=== PATIENT | female | born 1965 | race Caucasian/White ===

== ENCOUNTER 2017-01-08 18:05 | Inpatient (IN) ==
--- NOTE | 2017-01-08 18:56 | Emergency Department Note ---
Arrival - Arrival Chief Complaint: Extremity Problem Stated Complaint: right foot bleeding diabetic ED Nursing Triage Note: Pt c/o bleeding on her right foot x 2 wks after a red spot/blister started bleeding. Mode of Arrival: Wheelchair Time Seen by Provider: 01/08/17 18:42 - History of Present Illness HPI Narrative: This is a 51 year old insulin dependent diabetic female brought in by for complaints of blister to right heel for 2 weeks. Patient is currently undergoing electric shock therapy for bipolar disorder, and is poor historian. noted wound about 2 weeks ago, has been changing it with bandaids. Patient denies any pain - she describes foot as feeling numb. She has a history of neuropathy. They deny any fevers, chills, chest pain, shortness of breath. denies any purulent drainage from foot. He brought her in today because wound would not stop bleeding. Onset (ago): week(s) (2) Consistency: constant Allergies/Adverse Reactions: Allergies Allergy/AdvReac Type Severity Reaction Status Date / Time codeine Allergy Swelling Verified 01/08/17 18:09 of Lip/Tongue/Throat morphine Allergy RASH Verified 07/11/15 21:41 Penicillins Allergy RASH Verified 07/11/15 21:41 Sulfa (Sulfonamide Allergy RASH Verified 07/11/15 21:41 Antibiotics) IVP DYE Allergy RASH Uncoded 07/11/15 21:41 Home Medications: Home Medications Medication Instructions Recorded Confirmed Type Insulin Glargine [Lantus] 45 unit SUBCUT BEDTIME 03/31/15 01/08/17 History metFORMIN [Glucophage] 1,000 mg PO BID 03/31/15 01/08/17 History Pantoprazole Sodium [Protonix] 1 tablet PO DAILY 06/29/15 01/08/17 History Atorvastatin [Lipitor] 20 mg PO DAILY 05/25/16 01/08/17 History Gabapentin Cap/Tab [Neurontin 800 mg PO QID 05/25/16 01/08/17 History Cap/Tab] Nitroglycerin Sl Tab [Nitrostat] 0.4 mg SL Q5M PRN 05/25/16 01/08/17 History Propranolol HCl [Propranolol ER 60 mg PO DAILY 05/25/16 01/08/17 History Cap] Quetiapine Fumarate [Seroquel Xr] 800 mg PO 1800 05/25/16 01/08/17 History Trazodone HCl 100 mg PO BEDTIME 05/25/16 01/08/17 History Venlafaxine HCl [Effexor XR] 300 mg PO DAILY 05/25/16 01/08/17 History clonazePAM [Clonazepam] 0.5 mg PO QID PRN 05/25/16 01/08/17 History Valsartan/Hydrochlorothiazide 1 each PO DAILY 08/29/16 01/08/17 History [Valsartan-Hctz 320-25 mg Tab] Calcium Carbonate/Vitamin D3 1 each PO DAILY 01/08/17 01/08/17 History [Calcium 600-Vit D3 800 Tablet] Multivitamin/Iron/Folic Acid 1 each PO DAILY 01/08/17 01/08/17 History [Centrum Women Tablet] amLODIPine [Norvasc] 10 mg PO DAILY 01/08/17 01/08/17 History Review of System - Review of System Constitutional: Absent: chills, fever, night sweats Eyes: Absent: vision change Head/Ears/Nose/Throat: Absent: nasal drainage Respiratory: Absent: cough, respiratory distress Cardiovascular: Absent: chest pain, palpitations, dyspnea on exertion Gastrointestinal: Absent: abdominal pain, nausea, vomiting, diarrhea, constipation Genitourinary female: Absent: dysuria Musculoskeletal: Present: other (foot bleeding) Skin: Present: lesions. Absent: rash Neurological: Present: numbness. Absent: headache, weakness Medical,Surgical,& Family Hx - Medical History Cardio: History of: Hypertension Psychological: History of: Anxiety Disorders, Bipolar Disorder, Depression Endocrine: History of: Diabetes Mellitus (IDDM) Gastrointestinal: History of: GERD - Family History Family History: Reports;: Family Cancer, Family Psychiatric Problems, Family Stroke Denies;: Family Diabetes - Social History Smoking Status: Never smoker Exam Vital Signs: Vital Signs Temperature 98.6 F 01/08/17 18:35 Pulse Rate 84 01/08/17 20:10 Respiratory Rate 18 01/08/17 20:10 Blood Pressure 160/135 01/08/17 20:10 O2 Sat by Pulse Oximetry 95 01/08/17 18:09 - General General appearance: alert, in no apparent distress - Head Head exam: Present: atraumatic, normocephalic, normal inspection - Eye Eye exam: Present: normal appearance, PERRL, EOMI - ENT ENT exam: Present: normal exam, normal oropharynx, mucous membranes moist - Neck Neck exam: Present: normal inspection, full ROM. Absent: lymphadenopathy - Chest Chest inspection: Present: normal inspection, symmetric chest wall rise. Absent : tenderness - Respiratory Respiratory exam: Present: normal lung sounds bilaterally. Absent: rales, rhonchi, wheezes - Cardiovascular Cardiovascular exam: Present: regular rate, normal rhythm, normal heart sounds. Absent: murmur, rubs, gallop - Abdominal Exam Abdominal exam: Present: soft, normal bowel sounds. Absent: distention, tenderness - Extremities Exam Extremities exam: Present: other (R heel with 1 cm circular ulcer, oozing blood. No purulence or erythema. ) - Back Exam Back exam: Present: normal inspection. Absent: tenderness - Neurological Exam Neurological exam: Present: alert, oriented X3, CN II-XII intact - Psychiatric Psychiatric exam: Present: normal affect, normal mood - Skin Skin exam: Present: warm, dry, intact Course - Consultations Consultation #1: Discussed with hospitalist Dr. Duncan for admission for wound debridement for diabetic ulcer. Results - Labs CBC & BMP: 01/08/17 19:03 01/08/17 19:03 - Diagnostic Findings Procedure: X-ray: report reviewed by me (R foot XR: No acute intraosseous process. No osteomyelitis.) Disposition Clinical Impression: Diabetic ulcer of heel Case discussed with: patient, patient's family Disposition: Still a Patient Condition: Stable Time of Disposition: 21:39
--- NOTE | 2017-01-08 19:23 | XRay Report ---
Referring Physician: Jeanna Chaudhary MD Exam: XR foot 2V RT Date: January 08, 2017 at 6:45 PM Reason: Diabetic foot ulcer, concern for osteomyelitis Comparison: None Findings: There is minimal calcaneal spurring and an os navicularis. No acute fracture, dislocation or osseous destructive process is identified. Impression: No acute osseous process is identified. Specifically, there is no radiographic evidence of osteomyelitis. PROCEDURE INTERPRETED AT [facility] DEPARTMENT OF RADIOLOGY Final Report Signed by: Dr. Veto Eduardo
[2017-01-08 19:36] LABS: Basophils % 0.4 % (0.0-0.8); Eosinophils # 0.2 10*3/uL (0.0-0.87); Eosinophils % 2.2 % (0.00-10.9); Hematocrit 37.6 VOL% (35.7-47.0); Hemoglobin 12.2 GM/DL (12.0-16.0); Immature Granulocytes % 0.8 %; Immature Granulocytes Absolute 0.06 #; Lymphocytes % 27.6 % (21.3-54.2); Mean Corpuscular HGB Conc 32.4 GM/DL (32-36); Mean Corpuscular Hemoglobin 28 PG (27-34); Mean Corpuscular Volume 85.3 FL (87-102); Mean Platelet Volume 11.1 FL (9.6-12.0); Monocytes # 0.6 10*3/uL (0.11-0.8); Monocytes % 8.7 % (1.7-12.7); Neutrophils # 4.4 10*3/uL (1.4-7.4); Neutrophils % 60.3 % (38.7-73.9); Platelet Count 288 T/CUMM (130-400); Red Blood Count 4.41 MC/CUMM (3.8-5.5); Red Cell Distribution Width 16.4 % (9.3-17.3); White Blood Count 7.3 T/CUMM (4-12)
[2017-01-08 19:53] LABS: Calcium 8.7 MG/DL (8.5-10.1); Osmolality,Calculated 276.5 MOS/KG (273-304); Potassium 3.7 MMOL/L (3.5-5.1)
[2017-01-08 20:41] LABS: Sedimentation Rate-Westergren 44 MM/HR (0-30)
[2017-01-08] MEDS ORDERED: DEXTROSE 50% 25 GM/50 ML VIAL IV PRN ×2 (20:56)
[2017-01-08] MEDS ORDERED: ONDANSETRON 4 MG/2 ML VIAL IV PRN (20:56)
[2017-01-08] MEDS ORDERED: GLUCAGON 1 MG VIAL IM PRN ×2 (20:56)
--- NOTE | 2017-01-08 21:21 | Hospitalist History & Physical ---
Assessment and Plan (1) Diabetes Status: Chronic Assessment and plan: Moderate sliding scale regular insulin. Hemoglobin A1c. Current Visit: Yes Qualifiers: Diabetes mellitus type: type 1 Diabetes mellitus complication status: with skin complications Diabetes mellitus complication detail: with foot ulcer Qualified Code(s): E10.621 - Type 1 diabetes mellitus with foot ulcer; L97.509 - Non-pressure chronic ulcer of other part of unspecified foot with unspecified severity (2) Anxiety Status: Chronic Current Visit: Yes (3) Bipolar disorder Status: Chronic Assessment and plan: Continue with home medications. Of note patient takes Klonopin 0.5mg 4 times daily. Current Visit: Yes (4) Osteomyelitis Status: Acute Assessment and plan: Vancomycin 1 g IV every 12. Gentamicin 100 mg IV every 8 pharmacy consult. Wound care consult. Current Visit: Yes (5) Diabetic ulcer of heel Status: Acute Assessment and plan: Wound care consult Current Visit: Yes History of Present Illness Chief complaint: Diabetic foot ulcer bleeding from right heel History of present illness: Ms. Greene is a 51 year old female with a history of diabetes bipolar disorder has been undergoing treatment for electroshock therapy history of hypertension sleep apnea who for the past 2 weeks has been having bleeding from the heel of the right foot. According to patient has been the area started off as a small sore that progressed over the past several weeks. The oozing has continued and patient did stop her aspirin therapy however today the flow became more intense. There is been no history of fevers or chills. No shortness of breath or chest pain. She has not taken aspirin in over a week. The patient mentions that her sugars have been running in the 300s. X-ray of the foot done today showed evidence of osteomyelitis. She has been admitted for further therapy and care. Patient has extensive history of allergies to different medication she will start on vancomycin and gentamicin. Home Medications Medication Instructions Recorded Confirmed Type Insulin Glargine [Lantus] 45 unit SUBCUT BEDTIME 03/31/15 01/08/17 History metFORMIN [Glucophage] 1,000 mg PO BID 03/31/15 01/08/17 History Pantoprazole Sodium [Protonix] 1 tablet PO DAILY 06/29/15 01/08/17 History Atorvastatin [Lipitor] 20 mg PO DAILY 05/25/16 01/08/17 History Gabapentin Cap/Tab [Neurontin 800 mg PO QID 05/25/16 01/08/17 History Cap/Tab] Nitroglycerin Sl Tab [Nitrostat] 0.4 mg SL Q5M PRN 05/25/16 01/08/17 History Propranolol HCl [Propranolol ER 60 mg PO DAILY 05/25/16 01/08/17 History Cap] Quetiapine Fumarate [Seroquel Xr] 800 mg PO 1800 05/25/16 01/08/17 History Trazodone HCl 100 mg PO BEDTIME 05/25/16 01/08/17 History Venlafaxine HCl [Effexor XR] 300 mg PO DAILY 05/25/16 01/08/17 History clonazePAM [Clonazepam] 0.5 mg PO QID PRN 05/25/16 01/08/17 History Valsartan/Hydrochlorothiazide 1 each PO DAILY 08/29/16 01/08/17 History [Valsartan-Hctz 320-25 mg Tab] Calcium Carbonate/Vitamin D3 1 each PO DAILY 01/08/17 01/08/17 History [Calcium 600-Vit D3 800 Tablet] Multivitamin/Iron/Folic Acid 1 each PO DAILY 01/08/17 01/08/17 History [Centrum Women Tablet] amLODIPine [Norvasc] 10 mg PO DAILY 01/08/17 01/08/17 History Allergies Allergy/AdvReac Type Severity Reaction Status Date / Time codeine Allergy Swelling Verified 01/08/17 18:09 of Lip/Tongue/Throat morphine Allergy RASH Verified 07/11/15 21:41 Penicillins Allergy RASH Verified 07/11/15 21:41 Sulfa (Sulfonamide Allergy RASH Verified 07/11/15 21:41 Antibiotics) IVP DYE Allergy RASH Uncoded 07/11/15 21:41 Medical,Surgical,& Family Hx - Medical History Cardio: History of: Hypertension Psychological: History of: Anxiety Disorders, Bipolar Disorder, Depression Endocrine: History of: Diabetes Mellitus (IDDM) Gastrointestinal: History of: GERD - Family History Family History: Reports;: Family Cancer, Family Psychiatric Problems, Family Stroke Denies;: Family Diabetes - Social History Smoking Status: Never smoker - Constitutional Constitutional: Absent: anorexia, chills, fatigue, malaise - EENT Nose, mouth and throat: Absent: dysphagia, epistaxis - Respiratory Respiratory: Absent: cough - Gastrointestinal Gastrointestinal: Absent: abdominal pain, constipation - Genitourinary Genitourinary: Absent: flank pain - Neurological Neurological: Absent: behavioral changes - Psychiatric Psychiatric: Present: anxiety, panic attacks - Hematologic/Lymphatic Hematologic/Lymphatic: Present: easy bleeding Exam - Constitutional Vitals: Period Temp Pulse Resp BP Sys/Aragon Pulse Ox Last 24 Hr 98.6 F-98.6 F 84-86 18-18 132-160/98-135 95 General appearance: over weight - Head Head exam: Present: normal inspection - Eye Eye exam: Present: EOMI Pupils: Present: JEEVAN - Neck Neck exam: Present: normal inspection - Respiratory Respiratory exam: Present: clear to auscultation bilaterally - Cardiovascular Cardiovascular exam: Present: regular rate and rhythm - GI/Abdominal GI/Abdominal exam: Present: normal bowel sounds - Extremities Exam Extremities exam: Present: full ROM. Absent: edema - Neurological Exam Neurological exam: Present: alert, oriented X3 - Psychiatric Psychiatric exam: Present: anxious - Skin Skin exam: Present: other (Heel on the right is bandaged) Results - Labs CBC & BMP: 01/08/17 19:03 01/08/17 19:03 Quality Measures - VTE Contraindication to Pharmacological VTE Prophylaxis: High Risk of Bleeding
[2017-01-08] MEDS ORDERED: NITROGLYCERIN SL 0.4 MG TABLET SL PRN (21:37)
[2017-01-08] MEDS: SODIUM CHLORIDE 0.45% 1,000 ML IV SCH (22:04)
[2017-01-08] MEDS: clonazePAM 0.5 MG TABLET PO PRN (22:31)
[2017-01-08] MEDS: INSULIN REGULAR 100 UNIT/ML SUBCUT SCH (22:31)
[2017-01-08] MEDS ORDERED: SODIUM CHLORIDE 0.9% IV SCH (23:00)
[2017-01-08] MEDS ORDERED: GENTAMICIN IV SCH (23:00)
[2017-01-09] MEDS: VANCOMYCIN INJ 1,500 MG in SODIUM CHLORIDE 0.9% 500 ML IV SCH ×2 (01:10→08:22)
[2017-01-09 07:50] LABS: Basophils % 0.4 % (0.0-0.8); Eosinophils # 0.2 10*3/uL (0.0-0.87); Eosinophils % 2.9 % (0.00-10.9); Hematocrit 33.4 VOL% (35.7-47.0); Hemoglobin 10.9 GM/DL (12.0-16.0); Immature Granulocytes Absolute 0.07 #; Lymphocytes # 2.6 10*3/uL (1.4-4.0); Lymphocytes % 37.7 % (21.3-54.2); Mean Corpuscular HGB Conc 32.6 GM/DL (32-36); Mean Corpuscular Hemoglobin 28 PG (27-34); Mean Corpuscular Volume 85.4 FL (87-102); Mean Platelet Volume 11.1 FL (9.6-12.0); Monocytes # 0.6 10*3/uL (0.11-0.8); Monocytes % 9.3 % (1.7-12.7); Neutrophils # 3.3 10*3/uL (1.4-7.4); Neutrophils % 48.7 % (38.7-73.9); Platelet Count 249 T/CUMM (130-400); Red Blood Count 3.91 MC/CUMM (3.8-5.5); Red Cell Distribution Width 16.3 % (9.3-17.3); White Blood Count 6.9 T/CUMM (4-12)
[2017-01-09 08:14] LABS: Calcium 8.4 MG/DL (8.5-10.1); Osmolality,Calculated 277.7 MOS/KG (273-304); Potassium 3.5 MMOL/L (3.5-5.1)
[2017-01-09] MEDS: VALSARTAN/HCTZ 160-12.5 MG TABLET PO SCH (08:23)
[2017-01-09] MEDS: INSULIN REGULAR 100 UNIT/ML SUBCUT SCH ×4 (08:23→20:20)
[2017-01-09] MEDS: VENLAFAXINE XR 75 MG CAPSULE PO SCH (08:23)
[2017-01-09] MEDS: PANTOPRAZOLE 40 MG TABLET PO SCH (08:24)
[2017-01-09] MEDS: CALCIUM (CARBONATE)/VITAMIN D 600 MG-400 UNIT TABLET PO SCH (08:24)
[2017-01-09] MEDS: ATORVASTATIN 20 MG TABLET PO SCH (08:24)
[2017-01-09] MEDS: amLODIPine 10 MG TABLET PO SCH (08:24)
[2017-01-09] MEDS: GABAPENTIN 400 MG CAPSULE PO SCH ×4 (08:24→20:19)
[2017-01-09] MEDS: MULTIVITAMIN (CENTRUM) TABLET PO SCH (08:24)
[2017-01-09] MEDS: PROPRANOLOL LA 60 MG CAPSULE PO SCH (08:24)
[2017-01-09] MEDS: clonazePAM 0.5 MG TABLET PO PRN ×2 (08:25→20:20)
--- NOTE | 2017-01-09 11:17 | Infectious Disease Consult ---
Assessment and Plan (1) Diabetic ulcer of heel Status: Acute Assessment and plan: The wound to right lateral heel is very small and there is scab. There is evidence of dried blood on the dressing but no active bleeding when I saw him there was no purulent drainage. X-ray showed no osteomyelitis. This seems like just soft tissue injury which may be now starting to heal. There does not seem to be any associated infection. Recommendations: I really do not see indication for antibiotics at this point in time therefore I will stop the gentamicin and vancomycin. Continue local wound care. Thank you very much for the consult. Current Visit: Yes (2) Bipolar disorder Status: Chronic Current Visit: Yes (3) Diabetes Status: Chronic Assessment and plan: Uncontrolled with A1c of 9.3%. Current Visit: Yes Qualifiers: Diabetes mellitus type: type 1 Diabetes mellitus complication status: with skin complications Diabetes mellitus complication detail: with foot ulcer Qualified Code(s): E10.621 - Type 1 diabetes mellitus with foot ulcer; L97.509 - Non-pressure chronic ulcer of other part of unspecified foot with unspecified severity History of Present Illness Chief complaint: Also to right heel History of present illness: Ms. Greene is a 51 year old female presented to hospital yesterday because of bleeding from wound to right heel. She says wound has been present for 2 weeks. Denies trauma to the area. She has not had a diabetic foot infection in the past. No associated fever or other constitutional symptoms. There was concern for possible osteomyelitis and I am asked to assist with management. Home Medications Medication Instructions Recorded Confirmed Type Insulin Glargine [Lantus] 45 unit SUBCUT BEDTIME 03/31/15 01/08/17 History metFORMIN [Glucophage] 1,000 mg PO BID 03/31/15 01/08/17 History Pantoprazole Sodium [Protonix] 1 tablet PO DAILY 06/29/15 01/08/17 History Atorvastatin [Lipitor] 20 mg PO DAILY 05/25/16 01/08/17 History Gabapentin Cap/Tab [Neurontin 800 mg PO QID 05/25/16 01/08/17 History Cap/Tab] Nitroglycerin Sl Tab [Nitrostat] 0.4 mg SL Q5M PRN 05/25/16 01/08/17 History Propranolol HCl [Propranolol ER 60 mg PO DAILY 05/25/16 01/08/17 History Cap] Quetiapine Fumarate [Seroquel Xr] 800 mg PO 1800 05/25/16 01/08/17 History Trazodone HCl 100 mg PO BEDTIME 05/25/16 01/08/17 History Venlafaxine HCl [Effexor XR] 300 mg PO DAILY 05/25/16 01/08/17 History clonazePAM [Clonazepam] 0.5 mg PO QID PRN 05/25/16 01/08/17 History Valsartan/Hydrochlorothiazide 1 each PO DAILY 08/29/16 01/08/17 History [Valsartan-Hctz 320-25 mg Tab] Calcium Carbonate/Vitamin D3 1 each PO DAILY 01/08/17 01/08/17 History [Calcium 600-Vit D3 800 Tablet] Multivitamin/Iron/Folic Acid 1 each PO DAILY 01/08/17 01/08/17 History [Centrum Women Tablet] amLODIPine [Norvasc] 10 mg PO DAILY 01/08/17 01/08/17 History Allergies Allergy/AdvReac Type Severity Reaction Status Date / Time codeine Allergy Swelling Verified 01/08/17 18:09 of Lip/Tongue/Throat morphine Allergy RASH Verified 07/11/15 21:41 Penicillins Allergy RASH Verified 07/11/15 21:41 Sulfa (Sulfonamide Allergy RASH Verified 07/11/15 21:41 Antibiotics) IVP DYE Allergy RASH Uncoded 07/11/15 21:41 12 point system: reviewed and no additional remarkable complaints except as stated (Per HPI) Medical,Surgical,& Family Hx - Medical History Cardio: History of: Hypertension Psychological: History of: Anxiety Disorders, Bipolar Disorder, Depression Neurology: History of: Seizures (controlled via [facility] for depression) Endocrine: History of: Diabetes Mellitus (IDDM) Gastrointestinal: History of: GERD - Family History Family History: Reports;: Family Cancer, Family Psychiatric Problems, Family Stroke Denies;: Family Diabetes - Social History Smoking Status: Never smoker Frequency of Alcohol Use: None Infectious Disease Exam H&P - Constitutional Vitals: Vital Signs Temp Pulse Resp BP Pulse Ox 97.2 F L 91 H 20 126/70 96 01/09/17 08:00 01/09/17 08:00 01/09/17 08:00 01/09/17 08:00 01/09/17 08:00 Intake and Output 0501/09/17 01/09/17 23:59 07:59 15:59 Intake Total 500 / 500 Output Total 700 / 700 500 / 500 Balance -700 / -700 -500 / -500 500 / 500 Intake: IV 500 / 500 Vancomycin Inj 1,000 mg 500 / 500 In Ns 500 ml @ 250 mls/hr IV BID LOR Rx#: [id number] Output: Urine 700 / 700 500 / 500 Other: Voiding Method Toilet Toilet Weight 107.955 kg 107.955 kg Patient Weight 01/09/17 23:59 Weight 107.955 kg Exam: General: Patient comfortable, morbidly obese HEENT: Mucous membranes pink and moist, anicteric acyanotic, PERRLA, no oral exudates, she is edentulous Neck: Supple, no thyroid gland enlargement, no lymphadenopathy Respiratory system: Breath sounds vesicular, no crepitations or wheezes Cardiovascular: Normal S1 and S2, no murmurs appreciated Abdomen: Obese, normal bowel sounds, soft nontender throughout, no organomegaly or mass Genitourinary: No suprapubic pain or bladder distention Extremities: no edema, tiny wound to right lateral heel with scab, no surrounding erythema, no drainage, no tenderness to touch Skin: No rash Reports - Labs CBC & BMP: 01/09/17 05:54 01/09/17 05:54 Labs: Laboratory Results - last 24 hr 01/08/17 01/09/17 01/09/17 21:57 05:54 05:54 WBC 6.9 RBC 3.91 Hgb 10.9 L Hct 33.4 L MCV 85.4 L MCH 28 MCHC 32.6 RDW 16.3 Plt Count 249 MPV 11.1 Neut % (Auto) 48.7 Lymph % (Auto) 37.7 [place] % (Auto) 9.3 Eos % (Auto) 2.9 Baso % (Auto) 0.4 Neut # (Auto) 3.3 Lymph # (Auto) 2.6 [place] # (Auto) 0.6 Eos # (Auto) 0.2 Baso # (Auto) 0.0 Immature Gran % 1.0 Nucleated RBC % 0.0 Immature Gran # 0.07 Nucleated RBCs # 0.00 Sodium 138 Potassium 3.5 Chloride 98 Carbon Dioxide 28 Anion Gap 15.5 H BUN 8 Creatinine 1.00 GFR Calculation 79 BUN/Creatinine Ratio 8.00 Glucose 192 H POC Glucose 335 H Hemoglobin A1c Calculated Osmolality 277.7 Calcium 8.4 L 01/09/17 01/09/17 05:54 07:23 WBC RBC Hgb Hct MCV MCH MCHC RDW Plt Count MPV Neut % (Auto) Lymph % (Auto) [place] % (Auto) Eos % (Auto) Baso % (Auto) Neut # (Auto) Lymph # (Auto) [place] # (Auto) Eos # (Auto) Baso # (Auto) Immature Gran % Nucleated RBC % Immature Gran # Nucleated RBCs # Sodium Potassium Chloride Carbon Dioxide Anion Gap BUN Creatinine GFR Calculation BUN/Creatinine Ratio Glucose POC Glucose 196 H Hemoglobin A1c 9.3 H Calculated Osmolality Calcium - Diagnostic Findings Procedure: X-ray: report reviewed by me (No evidence of osteomyelitis to right heel on x-ray)
--- NOTE | 2017-01-09 12:02 | General Surgery Consult Note ---
Assessment and Plan (1) Diabetic ulcer of heel Status: Acute Assessment and plan: Unclear if this is a diabetic ulcer or possibly a traumatic wound. Regardless there is minimal erythema at this time. The a.m. antibiotics that were initiated have been stopped by infectious disease. MRI is pending. The foot wound itself is not impressive however I agree that a deep infection especially possibly from a puncture wound cannot be ruled out. MRI will be helpful and we will follow-up. Current Visit: Yes History of Present Illness Chief complaint: Right heel wound History of present illness: Ms. Greene is a 51 year old female with past medical history of insulin- dependent diabetes and rather advanced peripheral neuropathy by report currently admitted with a right heel wound. Apparently she her and she noted this approximately 2 weeks ago at which time they really just noted a "small blood blister." This did increase in size and began to bleed. The specimen performing most of the wound treatment and has been applying 4 x 4's and a soft wrap. He reports it has intermittently bled until yesterday at which time they cannot control the bleeding and reported to the emergency department. He has not noted any purulence or malodor from the area. The patient does note pain with weightbearing and/or palpation. She has had no fever, chills or riders. They are unaware if she stepped on any foreign body. Home Medications Medication Instructions Recorded Confirmed Type Insulin Glargine [Lantus] 45 unit SUBCUT BEDTIME 03/31/15 01/08/17 History metFORMIN [Glucophage] 1,000 mg PO BID 03/31/15 01/08/17 History Pantoprazole Sodium [Protonix] 1 tablet PO DAILY 06/29/15 01/08/17 History Atorvastatin [Lipitor] 20 mg PO DAILY 05/25/16 01/08/17 History Gabapentin Cap/Tab [Neurontin 800 mg PO QID 05/25/16 01/08/17 History Cap/Tab] Nitroglycerin Sl Tab [Nitrostat] 0.4 mg SL Q5M PRN 05/25/16 01/08/17 History Propranolol HCl [Propranolol ER 60 mg PO DAILY 05/25/16 01/08/17 History Cap] Quetiapine Fumarate [Seroquel Xr] 800 mg PO 1800 05/25/16 01/08/17 History Trazodone HCl 100 mg PO BEDTIME 05/25/16 01/08/17 History Venlafaxine HCl [Effexor XR] 300 mg PO DAILY 05/25/16 01/08/17 History clonazePAM [Clonazepam] 0.5 mg PO QID PRN 05/25/16 01/08/17 History Valsartan/Hydrochlorothiazide 1 each PO DAILY 08/29/16 01/08/17 History [Valsartan-Hctz 320-25 mg Tab] Calcium Carbonate/Vitamin D3 1 each PO DAILY 01/08/17 01/08/17 History [Calcium 600-Vit D3 800 Tablet] Multivitamin/Iron/Folic Acid 1 each PO DAILY 01/08/17 01/08/17 History [Centrum Women Tablet] amLODIPine [Norvasc] 10 mg PO DAILY 01/08/17 01/08/17 History Allergies Allergy/AdvReac Type Severity Reaction Status Date / Time codeine Allergy Swelling Verified 01/08/17 18:09 of Lip/Tongue/Throat morphine Allergy RASH Verified 07/11/15 21:41 Penicillins Allergy RASH Verified 07/11/15 21:41 Sulfa (Sulfonamide Allergy RASH Verified 07/11/15 21:41 Antibiotics) IVP DYE Allergy RASH Uncoded 07/11/15 21:41 Medical,Surgical,& Family Hx - Medical History Cardio: History of: Hypertension Psychological: History of: Anxiety Disorders, Bipolar Disorder, Depression Neurology: History of: Seizures (controlled via [facility] for depression) Endocrine: History of: Diabetes Mellitus (IDDM) Gastrointestinal: History of: GERD - Family History Family History: Reports;: Family Cancer, Family Psychiatric Problems, Family Stroke Denies;: Family Diabetes - Social History Smoking Status: Never smoker Frequency of Alcohol Use: None Exam - Constitutional Vitals: Period Temp Pulse Resp BP Sys/Aragon Pulse Ox Last 24 Hr 97.2 F-97.5 F 86-91 18-20 126-152/70-76 95-98 General appearance: no acute distress, morbidly obese - Head Head exam: Present: normal inspection, normocephalic, atraumatic - Eye Eye exam: Absent: conjunctival injection, scleral icterus - Respiratory Respiratory exam: Present: clear to auscultation bilaterally - Cardiovascular Cardiovascular exam: Present: RRR - GI/Abdominal GI/Abdominal exam: Present: normal bowel sounds, soft. Absent: tenderness - Extremities Exam Extremities exam: Present: other (Right heel with punctate, scabbed wound with minimal surrounding erythema. Slightly TTP, but no expressivel drainage or pain out of proportion. DP pulses palpable. Toes warm with BCR. ). Absent: calf tenderness, edema - Neurological Exam Neurological exam: Present: alert, oriented X3 - Skin Skin exam: Present: normal color, warm Quality Measures - VTE Contraindication to Pharmacological VTE Prophylaxis: High Risk of Bleeding Results - Labs CBC & BMP: 01/09/17 05:54 01/09/17 05:54 - Diagnostic Findings Procedure: X-ray: image reviewed by me, report reviewed by me (Foot XR - no evidence of osteomyelitis)
[2017-01-09] MEDS: SODIUM CHLORIDE 0.45% 1,000 ML IV SCH (15:22)
--- NOTE | 2017-01-09 16:34 | Hospitalist Progress Note ---
Assessment and Plan (1) Ulcer of foot Status: Acute Assessment and plan: Elevated ESR and CRP MRI ordered Surgery and ID consulted Antibiotics stopped Current Visit: Yes (2) Diabetes Status: Chronic Assessment and plan: Home Lantus Current Visit: Yes Qualifiers: Diabetes mellitus type: type 1 Diabetes mellitus complication status: with skin complications Diabetes mellitus complication detail: with foot ulcer Qualified Code(s): E10.621 - Type 1 diabetes mellitus with foot ulcer; L97.509 - Non-pressure chronic ulcer of other part of unspecified foot with unspecified severity (3) Anxiety Status: Chronic Current Visit: Yes (4) Bipolar disorder Status: Chronic Current Visit: Yes Hospitalist: Subjective Interval history: No acute events overnight. MRI ordered of foot to rule out osteo. ESR and CRP are elevated. Surgery and ID following. Not concerned for infection. Antibiotics stopped. Exam - Constitutional Vitals: Period Temp Pulse Resp BP Sys/Aragon Pulse Ox Last 24 Hr 97.2 F-97.8 F 86-91 18-20 126-152/70-76 95-98 General appearance: over weight - Head Head exam: Present: normocephalic, atraumatic - Eye Eye exam: Present: EOMI Pupils: Present: JEEVAN - ENT ENT exam: Present: normal exam - Neck Neck exam: Present: normal inspection - Respiratory Respiratory exam: Present: clear to auscultation bilaterally. Absent: rhonchi, wheezes - Cardiovascular Cardiovascular exam: Present: regular rate and rhythm - GI/Abdominal GI/Abdominal exam: Present: normal bowel sounds, soft. Absent: tenderness, rebound - Extremities Exam Extremities exam: Present: normal inspection - Back Exam Back exam: Present: normal inspection - Neurological Exam Neurological exam: Present: alert - Psychiatric Psychiatric exam: Present: normal affect, normal mood - Skin Skin exam: Present: warm, intact Results - Labs CBC & BMP: 01/09/17 05:54 01/09/17 05:54 Quality Measures - VTE Contraindication to Pharmacological VTE Prophylaxis: High Risk of Bleeding
[2017-01-09] MEDS ORDERED: QUETIAPINE FUMARATE 400 MG PO SCH (18:00)
--- NOTE | 2017-01-09 18:36 | Magnetic Resonance Report ---
Referring Physician: Thais Santos MD Exam: MRI right heel without contrast Date: January 09, 2017 Reason: Evaluate for osteomyelitis of the right heel, nonhealing wound Comparison: Right foot x-rays November 08, 2016 Technique: MRI of the right heel was performed without the use of contrast. Obtained sequences include sagittal T1, sagittal T2 fat sat, axial T1, axial T2 fat sat, coronal T1, coronal STIR and sagittal T2 fat sat sequences. A 1.2 Elisa open magnet was used. Findings: Motion artifact is present and limits evaluation on some sequences, particularly on the sagittal STIR sequence. No acute fracture or osseous process is identified. Specifically, there is no evidence of osteomyelitis. The plantar fascia is unremarkable, and there is no evidence of sinus tarsi syndrome. There is mild increased signal within the peroneus longus tendon at the level of the distal fibula. This likely represents a partial thickness tear, but motion artifact makes confirmation difficult. The remaining visualized tendons appear intact. Evaluation for an acute ligamentous injury is limited in some regions. There may be a remote injury of the anterior talofibular ligament, but no obvious acute ligamentous injury is seen. No effusion is seen at the tibiotalar joint. There is mild subcutaneous edema at the posterior lateral aspect of the right ankle. Impression: 1. There is no evidence of osteomyelitis. 2. There is subcutaneous edema at the posterior lateral aspect of the right ankle at the level of the distal fibula. This could be related to recent trauma or infection. 3. Suspected partial thickness tear of the peroneus longus tendon at the level of the distal fibula. Motion artifact makes confirmation difficult. PROCEDURE INTERPRETED AT [facility] DEPARTMENT OF RADIOLOGY Final Report Signed by: Dr. Veto Eduardo
[2017-01-09] MEDS ORDERED: INSULIN GLARGINE 100 UNIT/ML SUBCUT SCH (21:00)
[2017-01-10] MEDS: SODIUM CHLORIDE 0.45% 1,000 ML IV SCH ×2 (01:11→11:02)
[2017-01-10 05:34] LABS: Basophils % 0.3 % (0.0-0.8); Eosinophils # 0.2 10*3/uL (0.0-0.87); Eosinophils % 1.6 % (0.00-10.9); Hematocrit 36.3 VOL% (35.7-47.0); Hemoglobin 11.5 GM/DL (12.0-16.0); Immature Granulocytes % 1.1 %; Immature Granulocytes Absolute 0.12 #; Lymphocytes # 1.8 10*3/uL (1.4-4.0); Lymphocytes % 17.2 % (21.3-54.2); Mean Corpuscular HGB Conc 31.7 GM/DL (32-36); Mean Corpuscular Hemoglobin 28 PG (27-34); Mean Corpuscular Volume 88.1 FL (87-102); Mean Platelet Volume 10.8 FL (9.6-12.0); Monocytes # 0.9 10*3/uL (0.11-0.8); Monocytes % 8.7 % (1.7-12.7); NRBC # 0.03 10*3/uL; Neutrophils # 7.6 10*3/uL (1.4-7.4); Neutrophils % 71.1 % (38.7-73.9); Platelet Count 237 T/CUMM (130-400); Red Blood Count 4.12 MC/CUMM (3.8-5.5); Red Cell Distribution Width 16.5 % (9.3-17.3); White Blood Count 10.7 T/CUMM (4-12)
[2017-01-10 06:05] LABS: Calcium 8.5 MG/DL (8.5-10.1); Magnesium 1.8 MG/DL (1.8-2.4); Osmolality,Calculated 281.5 MOS/KG (273-304)
--- NOTE | 2017-01-10 07:22 | General Surgery Progress Note ---
Assessment and Plan (1) Penetrating foot wound Status: Acute Assessment and plan: No further surgical investigation or therapy is warranted. I will sign off. Call back with questions. Current Visit: Yes Subjective Patient reports: Present: no new complaints, afebrile Narrative: MRI shows no osteomyelitis or foreign body. Exam - Constitutional Vitals: Period Temp Pulse Resp BP Sys/Aragon Pulse Ox Last 24 Hr 97.2 F-98.1 F 81-98 18-20 116-143/64-78 90-100 General appearance: no acute distress, morbidly obese - Head Head exam: Present: normal inspection, normocephalic - Eye Eye exam: Present: EOMI Pupils: Present: JEEVAN - ENT ENT exam: Present: normal exam Mouth exam: Present: normal external inspection, normal voice - Neck Neck exam: Present: normal inspection, trachea midline - Respiratory Respiratory exam: Present: clear to auscultation bilaterally. Absent: accessory muscle use, chest wall tenderness - Cardiovascular Cardiovascular exam: Present: RRR. Absent: systolic murmur, tachycardia - GI/Abdominal GI/Abdominal exam: Present: soft. Absent: tenderness, rebound - Extremities Exam Extremities exam: Present: other (There is a punctate wound over the right heel with no erythema or drainage.) - Back Exam Back exam: Present: normal inspection - Neurological Exam Neurological exam: Present: alert, oriented X3 Speech: Present: normal - Skin Skin exam: Present: normal color, warm Results - Labs CBC & BMP: 01/10/17 05:09 01/10/17 05:09 - Diagnostic Findings Procedure: MRI: report reviewed by me (No osteomyelitis or foreign body) Quality Measures - VTE Contraindication to Pharmacological VTE Prophylaxis: High Risk of Bleeding
[2017-01-10] MEDS: INSULIN REGULAR 100 UNIT/ML SUBCUT SCH ×2 (08:45→11:50)
[2017-01-10] MEDS: CALCIUM (CARBONATE)/VITAMIN D 600 MG-400 UNIT TABLET PO SCH (08:46)
[2017-01-10] MEDS: ATORVASTATIN 20 MG TABLET PO SCH (08:46)
[2017-01-10] MEDS: PANTOPRAZOLE 40 MG TABLET PO SCH (08:46)
[2017-01-10] MEDS: PROPRANOLOL LA 60 MG CAPSULE PO SCH (08:46)
[2017-01-10] MEDS: amLODIPine 10 MG TABLET PO SCH (08:46)
[2017-01-10] MEDS: GABAPENTIN 400 MG CAPSULE PO SCH ×2 (08:46→12:00)
[2017-01-10] MEDS: MULTIVITAMIN (CENTRUM) TABLET PO SCH (08:46)
[2017-01-10] MEDS: VENLAFAXINE XR 75 MG CAPSULE PO SCH (08:46)
[2017-01-10] MEDS: VALSARTAN/HCTZ 160-12.5 MG TABLET PO SCH (08:46)
--- NOTE | 2017-01-10 09:43 | Discharge Summary ---
<Du Jaquez - Last Filed: 01/10/17 09:29> Hospital Course - Hospital Course Hospital Course: Ms. Greene was admitted on 01/08/2017 through the [place] [facility] with complaints of a hemorrhaging wound to the right heel with onset 2 weeks prior. She has IDDM and is currently undergoing electric shock therapy for bipolar disorder. She was admitted with suspected osteomyelitis and diabetic ulcer of the heel and started on vancomycin 1 g IV Q12H, Gentamicin 100mg IV Q8H with pharmacy and wound care consults. MRI of the foot revealed subcutaneous edema at the posterior lateral aspect of the right ankle at the level of the distal fibula but no evidence of osteomyelitis. Antibiotics were stopped. General surgery followed along for wound care and found the ulcer to be most congruent with a penetrating foot wound requiring no further surgical investigation or therapy. At this time, the patient has reached maximum benefit from hospitalization and is stable for discharge. Appropriate discharge instructions to follow per discharge orders and addendum by Dr. Castro. - Time spent with patient Time with patient DS: Greater than 30 minutes Discharge Plan - Discharge Data Disposition: Disch To Home/Self Care - Discharge Medications New HYDROcodone/ACETAMIN 7.5-325 [[place] 7.5-325] 1 tablet PO Q4H PRN #20 tablet PRN Reason: Pain Moderate (4-7) Insulin Regular [HumuLIN R] See Protocol SUBCUT ACHS unit Continue Insulin Glargine [Lantus] 45 unit SUBCUT BEDTIME Pantoprazole Sodium [Protonix] 1 tablet PO DAILY Atorvastatin [Lipitor] 20 mg PO DAILY clonazePAM [Clonazepam] 0.5 mg PO QID PRN PRN Reason: Anxiety Gabapentin Cap/Tab [Neurontin Cap/Tab] 800 mg PO QID Nitroglycerin Sl Tab [Nitrostat] 0.4 mg SL Q5M PRN PRN Reason: Chest Pain Propranolol HCl [Propranolol ER Cap] 60 mg PO DAILY Quetiapine Fumarate [Seroquel Xr] 800 mg PO 1800 Trazodone HCl 100 mg PO BEDTIME Venlafaxine HCl [Effexor XR] 300 mg PO DAILY Multivitamin/Iron/Folic Acid [Centrum Women Tablet] 1 each PO DAILY Calcium Carbonate/Vitamin D3 [Calcium 600-Vit D3 800 Tablet] 1 each PO DAILY Valsartan/Hydrochlorothiazide [Valsartan-Hctz 320-25 mg Tab] 1 each PO DAILY amLODIPine [Norvasc] 10 mg PO DAILY Discontinued metFORMIN [Glucophage] 1,000 mg PO BID - Follow Up or Referral - Forms/Instructions Exam - Constitutional Vitals: Period Temp Pulse Resp BP Sys/Aragon Pulse Ox Last 24 Hr 97.2 F-98.1 F 81-98 18-20 116-144/64-78 90-100 Discharge Results Labs on day of discharge: Labs from last 24 hours 01/10/17 01/10/17 01/10/17 07:13 05:09 05:09 WBC 10.7 D RBC 4.12 Hgb 11.5 L Hct 36.3 MCV 88.1 MCH 28 MCHC 31.7 L RDW 16.5 Plt Count 237 MPV 10.8 Neut % (Auto) 71.1 Lymph % (Auto) 17.2 L Garfield % (Auto) 8.7 Eos % (Auto) 1.6 Baso % (Auto) 0.3 Neut # (Auto) 7.6 H Lymph # (Auto) 1.8 [place]field # (Auto) 0.9 H Eos # (Auto) 0.2 Baso # (Auto) 0.0 Immature Gran % 1.1 Nucleated RBC % 0.3 Immature Gran # 0.12 Nucleated RBCs # 0.03 Sodium 139 Potassium 4.0 Chloride 101 Carbon Dioxide 28 Anion Gap 14.0 BUN 12 Creatinine 1.00 GFR Calculation 79 BUN/Creatinine Ratio 12.00 Glucose 191 H POC Glucose 211 H Calculated Osmolality 281.5 Calcium 8.5 Magnesium 1.8 01/09/17 01/09/17 01/09/17 19:27 16:01 11:32 WBC RBC Hgb Hct MCV MCH MCHC RDW Plt Count MPV Neut % (Auto) Lymph % (Auto) Garfield % (Auto) Eos % (Auto) Baso % (Auto) Neut # (Auto) Lymph # (Auto) Garfield # (Auto) Eos # (Auto) Baso # (Auto) Immature Gran % Nucleated RBC % Immature Gran # Nucleated RBCs # Sodium Potassium Chloride Carbon Dioxide Anion Gap BUN Creatinine GFR Calculation BUN/Creatinine Ratio Glucose POC Glucose 299 H 233 H 270 H Calculated Osmolality Calcium Magnesium DS: Provider Date of admission: 01/08/17 20:56 Primary care physician: Elroy Botello DO Attending physician on admission: Eyad Germain MD Consults: 01/08/17 21:07 Consult to Pharmacy [CONS] Routine Reason for Pharmacy Consult: Dose/Manage Vancomycin 01/08/17 21:37 Consult to Physician [CONS] Routine Comment: Consulting Provider: 01/08/17 21:41 Consult to Physician [CONS] Routine Comment: osteomyelitis Consulting Provider: Agnes Khan When should Consulting Provider be notified: In am Person Notified: DONTRELL Date Notified: 01/09/17 Time Notified: 09:06 01/08/17 22:20 Consult to [facility], Educator [CONS] Routine Reason for Cro[place]: Re-education Consult to Pastoral Services [CONS] Routine Comment: Pastoral Screen: Declines Visit Pastoral Screen Source of Request: Patient 01/09/17 10:02 Consult to Physician [CONS] Routine Comment: possible osteo Consulting Provider: Elliot Nichols Person Notified: shon Date Notified: 01/09/17 Time Notified: 10:54 Discharging clinician: Du ALVAREZ Expected date of discharge: 01/10/17 <Olga Castro - Last Filed: 01/10/17 11:02> Hospital Course - Hospital Course Hospital Course: ID saw patient and didnt see indication for antibiotics at this point in time therefore the gentamicin and vancomycin were stopped and they want to continue local wound care. There was evidence of dried blood on the dressing but no active bleeding and no purulent drainage. X-ray showed no osteomyelitis. This seems like just soft tissue injury which may be now starting to heal. There does not seem to be any associated infection. - Time spent with patient Time with patient DS: Greater than 30 minutes (Time spent: 35mins) Diagnosis - Discharge Diagnosis (1) Diabetic ulcer of heel Status: Acute (2) Diabetes Status: Chronic (3) Bipolar disorder Status: Chronic Discharge Plan - Discharge Data Condition at Discharge: Stable Discharge Diet: diabetic diet Activity: resume usual activities as tolerated - Forms/Instructions Additional Discharge Instructions: follow with PCP in 1week Exam - Constitutional General appearance: no acute distress, over weight - Head Head exam: Present: normal inspection - Respiratory Respiratory exam: Present: clear to auscultation bilaterally - Cardiovascular Cardiovascular exam: Present: regular rate and rhythm - GI/Abdominal GI/Abdominal exam: Present: normal bowel sounds - Extremities Exam Extremities exam: Present: other (right lateral heel is very small pinpoint ulcer)
[2017-01-10 11:19] VITALS: BP 148/68
== END 2017-01-10 15:18 | disposition home or self-care (01) | DRG 638 ==
LOC: N.ED 18:05 → SUATTDRO 20:56 → N.EDINP 20:56 → N.5E 21:40
PROVIDERS: ADMIT Internal Medicine; ATTEND Internal Medicine